=== PATIENT | female | born 1990 | race Caucasian/White ===

== ENCOUNTER 2021-02-04 03:21 | Emergency (ER) | payer BC ==
[2021-02-04] MEDS ORDERED: Catapres 0.1 MG PO ONE (03:49)
[2021-02-04] MEDS ORDERED: Catapres 0.1 MG ONE (03:50)
--- NOTE | 2021-02-04 04:06 | ERPHSYRPT ---
- History of Present Illness Source: patient Exam Limitations: no limitations Patient Subjective Stated Complaint: C/O headache. States that her head has been hurting off and on for a few weeks. Yesterday, the pain was worse and she began to have blurry vision. B/P last night was 157/107. Pain increased through the night so she came to the ER. Triage Nursing Assessment: States light makes headache worse, lights dimmed in room for patient. Patients states history of HTN and migraines. Vision is blurry at this time. Denies chest pain. No SOB noted. Physician History: 30yo wf w frontal TAPIA x2wks and elevated BP. Pt states that she was on Procardia for HTN but was taken off of it in Jul. Pain is 8/10. Bright lights make the pain worse. She has a h/o TAPIA, but the duration of this TAPIA is unusual. Pt denies trauma/fever/stiff neck/focal weakness but does have blurry vision. Timing/Duration: other (2wks) Head Pain Location: frontal Severity of Pain-Max: severe Severity of Pain-Current: severe Recent Head Trauma: occasional headaches Modifying Factors: Improves With: exposure to light Associated Symptoms: sensitive to light, No confusion, No dizziness, No fatigue, No facial pain, No fever/chills, No flushing, No light-headedness, No loss of consciousness, No nausea/vomiting, No nasal congestion, No nasal drainage, No neck pain, No numbness in legs/feet, No rash, No sweating, No scotoma, No seizures, No sinus infection, No speech problems, No stiff neck, No trouble walking, No vision changes, No visual disturbance, No weakness Previous symptoms: same symptoms as today (Occ h/o TAPIA) Allergies/Adverse Reactions: codeine Allergy (Verified 02/04/21 03:38) Vomiting Home Medications: Desvenlafaxine Succinate [Desvenlafaxine Succinate ER] 50 mg PO DAILY 02/04/21 [History] Methylphenidate 5 mg [Ritalin 5 MG] 10 mg PO BID 02/04/21 [History] Hx Tetanus, Diphtheria Vaccination/Date Given: No Hx Influenza Vaccination/Date Given: No Travel Risk - International Travel Have you traveled outside of the country in past 3 weeks: No - Coronavirus Screening Symptoms: Headaches/Body Aches/Fatigue Close contact with a COVID-19 positive Pt in past 14-21 Days: No - Vaccine Status Have you recieved a Covid-19 vaccination: Yes 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[employer] - Vaccination Dates Date of 2cond Vaccination (if applicable): October 2020 - Review of Systems Constitutional: No Symptoms Eyes: No Symptoms Ears, Nose, & Throat: No Symptoms Respiratory: No Symptoms Cardiac: No Symptoms Abdominal/Gastrointestinal: No Symptoms Genitourinary Symptoms: No Symptoms Musculoskeletal: No Symptoms Skin: No Symptoms Neurological: No Symptoms, Headache Psychological: No Symptoms Endocrine: No Symptoms Hematologic/Lymphatic: No Symptoms Immunological/Allergic: No Symptoms - Past Medical History Pertinent Past Medical History: Yes Cardiac History: Hypertension GI Medical History: Crohns Disease Other Medical History: Migraines - Past Surgical History Gastrointestinal: Cholecystectomy Other Surgical History: basal cell on head - Social History Smoking Status: Never smoker Exposure to second hand smoke: No Drug Use: none Patient Lives Alone: No Significant Family History: no pertinent family hx - Female History Hx Last Menstrual Period: NOW Hx Now: No - Nursing Vital Signs Nursing Vital Signs: Initial Vital Signs Temperature 96.9 F 02/04/21 03:29 Pulse Rate 74 02/04/21 03:29 Respiratory Rate 20 02/04/21 03:29 Blood Pressure 163/103 02/04/21 03:29 O2 Sat by Pulse Oximetry 98 02/04/21 03:29 Pain Scale Pain Intensity 5 Hypertension - Physical Exam General Appearance: no apparent distress Eye Exam: PERRL/EOMI, eyes nml inspection Ears, Nose, Throat Exam: normal ENT inspection, TMs normal, pharynx normal, moist mucous membranes Neck Exam: normal inspection, non-tender, supple, full range of motion, No meningismus, No mass, No Brudzinski, No Kernig's, No carotid bruit Respiratory Exam: normal breath sounds, lungs clear, airway intact Cardiovascular Exam: regular rate/rhythm, normal heart sounds, normal peripheral pulses, murmur Gastrointestinal/Abdominal Exam: soft, normal bowel sounds, No tenderness Back Exam: normal inspection, normal range of motion, No vertebral tenderness Extremity Exam: normal inspection, normal range of motion Mental Status Exam: alert, oriented x 3, cooperative big data lead Exam: normal hearing, normal speech, PERRL, abnormal eye position Coordination/Gait Exam: normal cerebellar function Motor/Sensory Exam: no motor deficit, no sensory deficit, no pronator drift DTR Exam: bicep (R): 2+, bicep (L): 2+ Skin Exam: normal color, warm, dry Lymphatic Exam: No adenopathy SpO2 Interpretation: normal SpO2: 98 O2 Delivery: Room Air - CT Exams Head CT Interpretation: Tele-radiologist Report (NAD) Ordered Tests: Active Orders 24 hr Category Date Time Status HEAD WITHOUT CONTRAST [CT] Stat Exams 02/04/21 03:50 Taken Medication Summary Discontinued Medications Generic Name Dose Route Start Last Admin Trade Name Freq PRN Reason Stop Dose Admin Clonidine 0.2 mg 02/04/21 03:49 02/04/21 03:51 Catapres 0.1 Mg PO 02/04/21 03:50 0.2 mg STAT ONE Administration Clonidine Confirm 02/04/21 03:50 Catapres 0.1 Mg Administered 02/04/21 03:51 Dose 0.2 mg .ROUTE .STK-MED ONE Ketorolac Tromethamine 60 mg 02/04/21 04:50 02/04/21 04:57 Toradol 30 Mg Injection IM 02/04/21 04:51 60 mg STAT ONE Administration Ketorolac Tromethamine Confirm 02/04/21 04:52 Toradol 30 Mg Injection Administered 02/04/21 04:53 Dose 60 mg .ROUTE .STK-MED ONE Prochlorperazine Edisylate 10 mg 02/04/21 04:50 02/04/21 05:03 Compazine 10 Mg/2 Ml IM 03/06/21 04:49 10 mg Q6H PRN PRN Administration NAUSEA/VOMITING Prochlorperazine Edisylate Confirm 02/04/21 04:52 Compazine 10 Mg/2 Ml Administered 02/04/21 04:53 Dose 10 mg .ROUTE .STK-MED ONE - Progress Progress: improved Progress Note: 02/04/21 04:51 0.2 po Clonidine w decrease in BP Pain not improved w decrease in BP 60mg IM Toradol/10mg IM Compazine 02/04/21 05:12 Pain and blood pressure improved Counseled pt/family regarding: need for follow-up, rad results - Departure Departure Disposition: Home Clinical Impression: Hypertension, Headache Condition: Stable Critical Care Time: No Referrals: LISETH RODRÍGUEZ MD [Primary Care Provider] - Instructions: Headache, Adult (DC), Malignant Hypertension (DC) Additional Instructions: Follow up with Dr. Rodríguez Watch blood pressure closely Return to ER for increasing pain or focal weakness
[2021-02-04] MEDS ORDERED: Compazine 10 MG/2 ML IM PRN (04:50)
[2021-02-04] MEDS ORDERED: TORAdol 30 mg Injection IM ONE (04:50)
[2021-02-04 04:52] VITALS: O2SAT 98
[2021-02-04] MEDS ORDERED: Compazine 10 MG/2 ML ONE (04:52)
[2021-02-04] MEDS ORDERED: TORAdol 30 mg Injection ONE (04:52)
[2021-02-04 05:20] VITALS: BP 124/77; PULSE 61
--- NOTE | 2021-02-04 08:55 | XRAY ---
Indication: Severe headache. Blurred vision. Hypertension. Multiple contiguous axial images obtained through the head without contrast. Comparison: None Normal appearing brain parenchyma, ventricles, and bony calvarium. Visualized paranasal sinuses and mastoid air cells are clear. Impression: Normal CT head without contrast exam. Comment: Preliminary interpretation made by [facility]. No critical discrepancy.
== END 2021-02-04 05:26 | disposition home or self-care (01) ==
LOC: ED 03:21
DX: I10 Essential (primary) hypertension (principal); R51.9 Headache, unspecified; Z79.899 Other long term (current) drug therapy
CPT/HCPCS: 70450; 96372; 99284; J1885; A9270-GY

== ENCOUNTER 2021-05-11 11:49 | Emergency (ER) | payer BC ==
[2021-05-11] MEDS ORDERED: TORAdol 30 mg Injection IM ONE (11:59)
[2021-05-11] MEDS ORDERED: Norflex 60 MG/2 ML IM ONE (11:59)
[2021-05-11] MEDS ORDERED: Norflex 60 MG/2 ML ONE (12:10)
[2021-05-11] MEDS ORDERED: TORAdol 30 mg Injection ONE (12:10)
--- NOTE | 2021-05-11 12:16 | ERPHSYRPT ---
- History of Present Illness Time Seen by Provider: 05/11/21 12:12 Source: patient Exam Limitations: no limitations Patient Subjective Stated Complaint: pt here for neck pain for 2 weeks after vomitng, and now has a headache Triage Nursing Assessment: pt alert, resp easy face mask in place, able to undress self Physician History: Patient is 30-year-old female with significant past medical history of high blood pressure started having some nausea and vomiting 2 weeks ago severe enough that she started having neck pain since then. She was seen by primary care and was advised IcyHot and heating pad but without any relief so she came to the emergency room today. She is also complaining of right side islam pain also and complaining of right ear pain. She denies any fever chills nausea vomiting. Timing/Duration: week(s) Severity: moderate Modifying Factors: Improves With: cold therapy Associated Symptoms: denies symptoms Allergies/Adverse Reactions: codeine Allergy (Verified 05/11/21 11:58) Vomiting Home Medications: Desvenlafaxine Succinate [Desvenlafaxine Succinate ER] 50 mg PO DAILY 02/04/21 [History] Methylphenidate 5 mg [Ritalin 5 MG] 10 mg PO BID 02/04/21 [History] Hx Tetanus, Diphtheria Vaccination/Date Given: No Hx Influenza Vaccination/Date Given: No Hx Pneumococcal Vaccination/Date Given: No Immunizations Up to Date: Yes Travel Risk - International Travel Have you traveled outside of the country in past 3 weeks: No - Coronavirus Screening Are you exhibiting any of the following symptoms?: No Close contact with a COVID-19 positive Pt in past 14-21 Days: No - Vaccine Status Have you recieved a Covid-19 vaccination: 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[employer] - Vaccination Dates Date of 2cond Vaccination (if applicable): 09/2020 - Review of Systems Constitutional: No Fever, No Chills Eyes: No Symptoms Ears, Nose, & Throat: Ear Pain Respiratory: No Cough, No Dyspnea Cardiac: No Chest Pain, No Edema, No Syncope Abdominal/Gastrointestinal: No Abdominal Pain, No Nausea, No Vomiting, No Diarrhea Genitourinary Symptoms: No Dysuria Musculoskeletal: Neck Pain, No Back Pain Skin: No Rash Neurological: No Dizziness, No Focal Weakness, No Sensory Changes Psychological: No Symptoms Endocrine: No Symptoms All Other Systems: Reviewed and Negative - Past Medical History Pertinent Past Medical History: Yes Cardiac History: Hypertension GI Medical History: Crohns Disease Other Medical History: Migraines - Past Surgical History Past Surgical History: Yes Gastrointestinal: Cholecystectomy Other Surgical History: basal cell on head - Social History Smoking Status: Never smoker Exposure to second hand smoke: No Drug Use: none Patient Lives Alone: No Significant Family History: no pertinent family hx - Female History Hx Last Menstrual Period: week ago Hx Now: No - Nursing Vital Signs Nursing Vital Signs: Pain Scale Pain Intensity 9 - Physical Exam General Appearance: no apparent distress, alert Eye Exam: PERRL/EOMI, eyes nml inspection Ears, Nose, Throat Exam: normal ENT inspection, TMs normal, pharynx normal, moist mucous membranes Neck Exam: normal inspection, supple, limited range of motion Respiratory Exam: normal breath sounds, lungs clear, No respiratory distress Cardiovascular Exam: regular rate/rhythm, normal heart sounds, normal peripheral pulses Gastrointestinal/Abdomen Exam: soft, normal bowel sounds, No tenderness, No mass Back Exam: normal inspection, normal range of motion, No CVA tenderness, No vertebral tenderness Extremity Exam: normal inspection, normal range of motion, pelvis stable Neurologic Exam: alert, oriented x 3, cooperative, normal mood/affect, nml cerebellar function, nml station & gait, sensation nml, No motor deficits Skin Exam: normal color, warm, dry, No rash Lymphatic Exam: No adenopathy SpO2 Interpretation: normal O2 Delivery: Room Air - Course Nursing assessment & vital signs reviewed: Yes - Radiology Exams C-Spine X-ray Interpretation: Reviewed by me, No Fracture Ordered Tests: Active Orders 24 hr Category Date Time Status CERVICAL SPINE MINIMUM 4 VIEWS Stat Exams 05/11/21 12:22 Taken Medication Summary Discontinued Medications Generic Name Dose Route Start Last Admin Trade Name Freq PRN Reason Stop Dose Admin Ketorolac Tromethamine 60 mg 05/11/21 11:59 05/11/21 12:13 Ketorolac Tromethamine 30 Mg/Ml Inj IM 05/11/21 12:00 60 mg STAT ONE Administration Ketorolac Tromethamine Confirm 05/11/21 12:10 Ketorolac Tromethamine 30 Mg/Ml Inj Administered 05/11/21 12:11 Dose 60 mg .ROUTE .STK-MED ONE Orphenadrine Citrate 60 mg 05/11/21 11:59 05/11/21 12:14 Orphenadrine Citrate 60 Mg/2 Ml Amp IM 05/11/21 12:00 60 mg STAT ONE Administration Orphenadrine Citrate Confirm 05/11/21 12:10 Orphenadrine Citrate 60 Mg/2 Ml Amp Administered 05/11/21 12:11 Dose 60 mg .ROUTE .STK-MED ONE - Progress Progress: improved Counseled pt/family regarding: diagnosis, need for follow-up, rad results - Departure Departure Disposition: Home Clinical Impression: Muscle spasms of neck, Tension headache Condition: Stable Critical Care Time: No Referrals: LISETH RODRÍGUEZ MD [Primary Care Provider] - Instructions: Cervical Muscle Strain (DC), Generalized Neck Pain (DC) Additional Instructions: Discharge/Care Plan URMILA PARR was seen on 05/11/21 in the Emergency Room. The patient was counseled regarding Diagnosis,Lab results, Imaging studies, need for follow up and when to return to the Emergency Room. Prescriptions given: Discharge Note I have spoken with the patient and/or caregivers. I have explained the patient's condition, diagnosis and treatment plan based on the information available to me at this time. I have answered the patient's and/or caregiver's questions and addressed any concerns. The patient and/or caregivers have as good understanding of the patient's diagnosis, condition and treatment plan as can be expected at this point. The vital signs have been stable. The patient's condition is stable and appropriate for discharge from the emergency department. The patient will pursue further outpatient evaluation with the primary care physician or other designated or consulting physician as outlined in the discharge instructions. The patient and/or caregivers are agreeable to this plan of care and follow-up instructions have been explained in detail. The patient and/or caregivers have received these instruction. The patient/and or caregivers are aware that any significant change in condition or worsening of symptoms should prompt an immediate return to this or the closest emergency department or call 911. URMILA PARR was seen on 05/11/21 n the Emergency Room. At that time you were treated for an emergent condition, during your visit Laboratory, Radiology and/or other procedures may have been ordered. It is very important that you follow-up with your Primary Care Physician LISETH RODRÍGUEZ within the next 24- 48 hours to review your Emergency Room visit and the final results of testing that was ordered. Some test results such as Urine Cultures, Blood Cultures, and other cultures if ordered will not be finalized for 24-48 hours. If you do not have a Primary Care Provider please call the medical records department at [phone] ext [phone] to obtain a copy of your results or you may sign into our patient portal to obtain these results by visiting us @ [email or web address] and completing the following steps: 1. Click on the Patient Portal link 2. Click the Patient Self Enrollment Link to complete the enrollment form and entering your 3. Once the enrollment form is completed you will receive an email with a temporary ID and password at the email address you provided. 4. Next choose a user name and password. Your user name must be at least 4 characters long and your password must be at least 4 characters long. 5. Choose a security question from the list and provide your answer to the question. If you already have signed into the Health Portal you may access your Health Care Information 01/02 by the following steps: 1. Login to our website @ [email or web address] 2. Enter your original user name and password. FAQS The [facility] Health Portal is an online tool that contains your Lab Results, Radiology Reports, Visit History, Discharge Instructions and Health Summary Lab and Radiology Results will not be available for 72 hours on the portal. The Portal is a secure site, passwords are encryted and URLs are re-written so they cannot be copied and pasted. You and authorized family members are the only ones who can access your Portal. Also there is a timeout feature that protects your information if you leave the Portal page open. If you have technical difficulty please use the Contact Us link on the page this will allow you to submit any questions you have regarding the Portal or you may contact the Medical Record Department at [phone] ext [phone]. Prescriptions: Orphenadrine Citrate 100 mg [Norflex 100 MG Tablet] 100 mg PO BID #20 tab Ketorolac Tromethamine [Toradol] 10 mg PO Q8H PRN PRN #15 tablet PRN Reason: Pain Ondansetron ODT 4 MG [Zofran Odt 4 mg] 4 mg PO Q6H PRN PRN #10 tablet PRN Reason: Vomiting
--- NOTE | 2021-05-11 19:36 | XRAY ---
Indication: Pain. No known injury. Comparison: None 5 view cervical spine demonstrates lordotic straightening. Vertebral body heights/disc spaces maintained. Foramina bilaterally patent. No bony, articular, or soft tissue abnormalities.
== END 2021-05-11 12:45 | disposition home or self-care (01) ==
LOC: ED 11:49
DX: M62.838 Other muscle spasm (principal); G44.209 Tension-type headache, unspecified, not intractable
CPT/HCPCS: 72050; 96372; 99284; J1885; J2360

== ENCOUNTER 2022-05-28 17:49 | Emergency (ER) | payer BC, OTHER ==
[2022-05-28] MEDS ORDERED: Adacel Vial IM ONE ×2 (20:12→20:21)
--- NOTE | 2022-05-28 20:18 | ERPHSYRPT ---
- History of Present Illness Time Seen by Provider: 05/28/22 17:59 Source: patient Exam Limitations: no limitations Patient Subjective Stated Complaint: pain and injury to left forehead and cheek when a trunk of a van came down and hit pt in head and face. pt denies any LOC at time states area bleed for "a long time" Triage Nursing Assessment: Pt arrives p/w/d with injury noted to left forehead pt has bruising and swelling note. reports of dizziness noted when walking. no bleeding noted at this time patient is a@[id number] Physician History: 31-year-old female presented in the ER with chief complaint of injury to left fo rehead/cheek area when she was taking out stuff from Van and the trunk door came down hitting on the forehead on the left side and also on the left cheek. There is a small abrasion which bled initially but stopped with applying pressure. She had an immediate appearance of goose egg, was given ice on presentation in the ER and it is much improved now. She denies any loss of consciousness, and complaining of still having mild dull aching headache without visual disturbance, no dizziness or lightheadedness. No numbness tingling or focal weakness. Patient does not report getting dazed immediately after he got hit. Currently denies any pain in the left cheek but mild with palpation. Unsure about tetanus status. Occurred: just prior to arrival Severity: mild, moderate Head Injury Location: frontal Method of Injury: other Loss of Consciousness: no loss of consciousness Associated Symptoms: denies symptoms Allergies/Adverse Reactions: codeine Allergy (Verified 05/28/22 19:49) Vomiting Home Medications: Methylphenidate 5 mg [Ritalin 5 MG] 10 mg PO BID 02/04/21 [History] Desvenlafaxine Succinate [Desvenlafaxine Succinate ER] 05/28/22 [History] norgestimate-ethinyl estradioL [Tri-Sprintec Tablet] 1 each PO DAILY 05/28/22 [History] Hx Tetanus, Diphtheria Vaccination/Date Given: No Hx Influenza Vaccination/Date Given: No Hx Pneumococcal Vaccination/Date Given: No Travel Risk - International Travel Have you traveled outside of the country in past 3 weeks: No - Coronavirus Screening Are you exhibiting any of the following symptoms?: No Close contact with a COVID-19 positive Pt in past 14-21 Days: No - Vaccine Status Have you recieved a Covid-19 vaccination: 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[email or web address] - Vaccination Dates Date of 2cond Vaccination (if applicable): 09/2020 - Review of Systems Constitutional: No Symptoms Eyes: No Symptoms Ears, Nose, & Throat: No Symptoms Respiratory: No Symptoms Cardiac: No Symptoms Abdominal/Gastrointestinal: No Symptoms Genitourinary Symptoms: No Symptoms Musculoskeletal: Injury Skin: Skin Lesions Neurological: Headache Psychological: No Symptoms Hematologic/Lymphatic: No Symptoms Immunological/Allergic: No Symptoms - Past Medical History Pertinent Past Medical History: Yes Cardiac History: Hypertension GI Medical History: Crohns Disease Other Medical History: Migraines - Past Surgical History Past Surgical History: Yes Gastrointestinal: Cholecystectomy Other Surgical History: basal cell on head left knee scope - Social History Smoking Status: Never smoker Exposure to second hand smoke: No Drug Use: none Patient Lives Alone: No Significant Family History: no pertinent family hx - Female History Hx Last Menstrual Period: 04/26/22 Hx Now: No - Nursing Vital Signs Nursing Vital Signs: Initial Vital Signs Temperature 98 F 05/28/22 19:48 Pulse Rate 85 05/28/22 19:48 Respiratory Rate 18 05/28/22 19:48 Blood Pressure 158/103 05/28/22 19:48 O2 Sat by Pulse Oximetry 97 05/28/22 19:48 Pain Scale Pain Intensity 6 - Jacque Coma Score Best Eye Response (Jacque): (4) open spontaneously Best Verbal Response (Powell): (5) oriented Best Motor Response (Jacque): (6) obeys commands Jacque Total: 15 - Physical Exam General Appearance: no apparent distress Head Injury: contusions (Left forehead with superficial abrasion 0.2 cm no active bleeding or spurting. No step in deformity. Hematoma already improving.), swelling, tenderness (Minimal tenderness left maxilla) Eye Exam: bilateral eye: normal inspection, PERRL, EOMI ENT Exam: airway nml, nml ext.inspection, No dental injury Neck Exam: supple, trachea midline, full range of motion, normal alignment, normal inspection Cardiovascular/Respiratory Exam: chest non-tender, normal breath sounds, regular rate/rhythm Gastrointestinal/Abdominal Exam: soft Back Exam: normal inspection, normal range of motion Extremity Exam: non-tender, normal range of motion Mental Status Exam: alert, oriented x 3, cooperative hand plug shaper Exam: normal hearing, normal speech, PERRL Coordination/Gait Exam: normal finger to nose, normal gait, normal cerebellar function Motor/Sensory Exam: no motor deficit, no sensory deficit, no pronator drift, negative Babinski's sign DTR Exam: bicep (R): 2+, bicep (L): 2+, knee (R): 2+, knee (L): 2+ Skin Exam: normal color SpO2 Interpretation: normal SpO2: 97 O2 Delivery: Room Air Ordered Tests: Medication Summary Generic Name Dose Route Start Last Admin Trade Name Vivek PRN Reason Stop Dose Admin Diphtheria/Tetanus/Acell Pertussis 0.5 ml 05/28/22 20:12 Tdap --Diph,Pertuss(Acell),Tet Vac/Pf 0.5 Ml Vial IM 05/28/22 20:13 .ONCE ONE - Progress Progress: improved Progress Note: 05/28/22 20:16 31-year-old is evaluated for injury to left forehead and cheek/maxilla. No loss of consciousness. No vomiting or nausea. No dizziness or lightheadedness. Mild headache, does not want anything for pain. She has a superficial abrasion/laceration, offered Steri-Strip glue which she refused. Tetanus is updated. Discussed with patient in detail about risk and benefits of obtaining CT and the mechanism of injury which is not severe enough and she opted for observation at home. Recommended using Tylenol for next 36 hours and no NSAIDs. Recommended frequent neurochecks and outpatient follow-up. Discussed signs symptoms of worsening needing return to ER which she seems understanding. Counseled pt/family regarding: diagnosis, need for follow-up - Departure Departure Disposition: Home Clinical Impression: Forehead contusion Condition: Stable Critical Care Time: No Referrals: LISETH RODRÍGUEZ MD [Primary Care Provider] - Follow up/PCP as directed (1-2 days for reevaluation) Instructions: Closed Head Injury (DC), Concussion, Adult (DC) Additional Instructions: Intermittent ice application. Tylenol as needed for pain. Stay with responsible person for next 36 to 48 hours with frequent neurochecks. Return to ER for intractable headache, vomiting, feeling confused, numbness tingling weakness or visual disturbance.
[2022-05-28 20:35] VITALS: BP 159/109; PULSE 84; O2SAT 98
== END 2022-05-28 20:43 | disposition home or self-care (01) ==
LOC: ED 17:49
DX: S00.83XA Contusion of other part of head, initial encounter (principal); W20.8XXA Other cause of strike by thrown, projected or falling object, initial encounter; R51.9 Headache, unspecified; I10 Essential (primary) hypertension; Z79.899 Other long term (current) drug therapy
CPT/HCPCS: 90471; 90715; 99282